=== PATIENT | female | born 1980 | race Caucasian/White ===

== ENCOUNTER 2022-12-28 19:27 | Emergency (ER) | payer BC ==
[2022-12-28] MEDS ORDERED: Sodium Chloride 0.9% 1,000 ML IV ONE (19:56)
[2022-12-28] MEDS ORDERED: Ondansetron 4 MG/2 ML SDV IVPUSH ONE (19:56)
[2022-12-28] MEDS ORDERED: LORazepam 2 MG/ML SDV IVPUSH ONE (19:57)
[2022-12-28] MEDS ORDERED: Ketorolac 30 MG/ML SDV IVPUSH ONE (19:57)
== END 2022-12-28 22:20 | disposition home or self-care (01) ==
LOC: MW.ED 19:27
DX: G43.909 Migraine, unspecified, not intractable, without status migrainosus (principal)
CPT/HCPCS: 70450; 96361; 96374; 96375; 99283; J1885; J2060; J2405; J7030

== ENCOUNTER 2023-01-21 08:34 | Emergency (ER) | payer OTHER, BC | END 2023-01-21 11:10 | disposition home or self-care (01) | LOC: MW.ED 08:34 | DX: S83.91XA Sprain of unspecified site of right knee, initial encounter (principal); Z79.899 Other long term (current) drug therapy; X50.1XXA Overexertion from prolonged static or awkward postures, initial encounter | CPT/HCPCS: 73562-26-RT; 73562-RT; 99283 ==

== ENCOUNTER 2023-03-07 12:55 | Emergency (ER) | payer BC ==
[2023-03-07] MEDS ORDERED: Sodium Chloride 0.9% 2.5 ML Syringe FLUSH PRN (13:07)
[2023-03-07] MEDS ORDERED: Sodium Chloride 0.9% 10 ML Syringe FLUSH PRN (13:07)
[2023-03-07] MEDS: Aspirin 81 MG Tab.Chew PO ONE ×2 (13:41→13:43)
[2023-03-07 13:59] LABS: CALCIUM 8.7 mg/dL (8.5-10.1); CARBON DIOXIDE,CO2 26.8 mmol/L (21.0-32.0); CREATININE 0.8 mg/dL (0.6-1.0); EST CRCL DRUG DOSING (CG) 76.55 mL/min; POTASSIUM,K 3.8 mmol/L (3.5-5.1)
[2023-03-07] MEDS ORDERED: Pantoprazole 80 MG in Sodium Chloride 0.9% 10 ML IVPUSH ONE (15:04)
[2023-03-07] MEDS ORDERED: Pantoprazole 80 MG in Sodium Chloride 0.9% 20 ML IVPUSH ONE (15:04)
== END 2023-03-07 16:12 | disposition home or self-care (01) ==
LOC: MW.ED 12:55
DX: R07.2 Precordial pain (principal); R06.00 Dyspnea, unspecified
CPT/HCPCS: 36415; 71045; 80048; 84484; 85379; 93005; 99285; J3490; 93010; A9270-GY

== ENCOUNTER 2024-10-08 11:27 | Emergency (ER) | payer OTHER, BC | END 2024-10-08 13:08 | disposition home or self-care (01) | LOC: MW.ED 11:27 | DX: S16.1XXA Strain of muscle, fascia and tendon at neck level, initial encounter (principal); Z79.899 Other long term (current) drug therapy; V49.49XA Driver injured in collision with other motor vehicles in traffic accident, initial encounter; Y93.89 Activity, other specified | CPT/HCPCS: 70450; 70450-26; 72125; 72125-26; 99284 ==